=== PATIENT | male | born 1975 | race American Indian/Alaskan Native ===

== ENCOUNTER 2020-07-18 09:52 | Emergency (ER) | payer SELFPAY ==
[2020-07-18 10:06] VITALS: BP 141/88
--- NOTE | 2020-07-18 10:29 | Emergency Department Report ---
ED GI Bleed HPI - General Chief complaint: GI Bleed Stated complaint: BLOOD IN STOOL Time Seen by Provider: 07/18/20 10:13 Source: patient Mode of arrival: Ambulatory Limitations: No Limitations - History of Present Illness Initial comments: 45 yr old male with pmhx hypertension presents to ED with complaints of rectal bleeding. Patient states that he has been having rectal bleeding for 2 years. Patient states that he has been to few ERs for his symptoms he has had lab testing, as well as CT scans to evaluate his rectal bleeding but nothing signifi cant has been found. Patient brought in records from when he went to [place] [facility] from back in September 2019, hemoglobin then was stable at 14.6, he CT scan at the time which was done with IV contrast showed nothing acute. Patient states that he was told he had hemorrhoids and was prescribed Proctofoam, but he states that he does not feel his symptoms related to hemorrhoids because he still continues to have the symptoms. He states that the bleeding is typically bright red, with bowel movements, it has been intermittent over the past 2 years and notices it mainly on the tissue when he wipes and in the toilet bowl. He states that her stool is not hard, but he does admit that sometimes he strains for bowel movement. He reports mild discomfort in his lower abdomen intermittently. He also states that he is concerned because over the past 5 to 6 months has been losing weight and gaining weight. He reports no mucus in the stool. He denies any rectal pain or swelling. He denies any nausea or vomiting. He is not on any blood thinners,and denies any NSAID abuse or EtOH abuse. Patient states that he has not follow-up with a GI specialist because he did does not have insurance. complaint: blood on toilet paper, gross hematochezia -: year(s) (2 ) - Related Data Allergies Allergy/AdvReac Type Severity Reaction Status Date / Time No Known Allergies Allergy Unverified 07/18/20 10:01 ED Review of Systems ROS: Stated complaint: BLOOD IN STOOL Other details as noted in HPI Comment: All other systems reviewed and negative Constitutional: denies: chills, fever Eyes: denies: eye pain, eye discharge, vision change ENT: denies: ear pain, throat pain Respiratory: denies: cough, shortness of breath, wheezing Gastrointestinal: abdominal pain, hematochezia. denies: nausea, vomiting, diarrhea, constipation, hematemesis, melena Genitourinary: denies: urgency, dysuria Musculoskeletal: denies: back pain, joint swelling, arthralgia Skin: denies: rash, lesions Neurological: denies: headache, weakness, paresthesias Psychiatric: denies: anxiety, depression Hematological/Lymphatic: denies: easy bleeding, easy bruising ED Past Medical Hx - Past Medical History Hx Hypertension: Yes - Social History Smoking Status: Never Smoker Substance Use Type: Marijuana ED Physical Exam - General Limitations: No Limitations General appearance: alert, in no apparent distress - Head Head exam: Present: atraumatic, normocephalic, normal inspection - Eye Eye exam: Present: normal appearance, PERRL, EOMI Pupils: Present: normal accommodation - ENT ENT exam: Present: normal exam, mucous membranes moist - Respiratory Respiratory exam: Absent: respiratory distress - Cardiovascular Cardiovascular Exam: Present: regular rate, normal rhythm, normal heart sounds - GI/Abdominal GI/Abdominal exam: Present: soft. Absent: distended, tenderness, guarding, rebound, rigid - Rectal Rectal exam: Present: normal rectal tone, heme (-) stool, tenderness (Mild ), other (Small fissures noted about 6 oclock of rectum). Absent: black stool, bloody stool, fecal impaction, hemorrhoids, mass - Neurological Exam Neurological exam: Present: alert, oriented X3, CN II-XII intact, normal gait - Psychiatric Psychiatric exam: Present: normal affect, normal mood - Skin Skin exam: Present: intact ED Course Vital Signs 07/18/20 10:02 Temperature 97.8 F Pulse Rate 92 H Respiratory 18 Rate Blood Pressure 141/88 O2 Sat by Pulse 100 Oximetry ED Medical Decision Making - Lab Data Result diagrams: 07/18/20 10:43 07/18/20 10:43 - Medical Decision Making Patient has been rectal bleeding off and on for the past 2 years. Has been to a few ERs and has had lab work including negative CT scans. He has not been able to follow-up with the GI specialist due to to lack of insurance. He presents to the ER today with similar symptoms that he has been having a lot of for the past 2 years as well as fluctuation in his weight over the past 5 to 6 months. Patient has no significant past medical history. Patient is well-appearing, not toxic, is not in any acute distress. He is ne urologically intact with a normal gait. He has a soft nontender abdomen. Digital rectal exam shows small anal fissure, but no thrombosed hemorrhoid, rectal abscess, or gross blood. His Hemoccult was negative. His CBC shows a normal H&H. CMP is also normal. No indication for any further work-up including imaging or emergent consult or admission at this time. Informed patient of results. Informed that bleeding could also be coming from the anal fissures that I saw on exam but he needs to follow-up with a GI specialist for further evaluation as he needs a colonoscopy to further evaluate his bleeding. Patient expressed understanding of instructions and agree with plan. Patient stable at time of discharge. Critical care attestation.: If time is entered above; I have spent that time in minutes in the direct care of this critically ill patient, excluding procedure time. ED Disposition Clinical Impression: Rectal bleeding, Anal fissure Disposition: TO HOME OR SELFCARE Is pt being admited?: No Does the pt Need Aspirin: No Condition: Stable Instructions: Anal Fissure, Adult, [id number], Lower Gastrointestinal Bleeding Additional Instructions: It is important that you try not to strain with your bowel movements. If your stool is hard, that it could indicate that you are constipated and I recommend that you drink lots of fluids especially water, increase your fiber intake, you can also take Colace from [id number] which is a stool softener to help. Most importantly it is important that you follow-up with a GI specialist so that you can get a colonoscopy/endoscopy for further evaluation. Return to the ER if symptoms changes or worsens in any way. Referrals: ESTRELLA SIMMONS MD [Staff Physician] - 3-5 Days [facility] [Provider Group] - 3-5 Days Forms: Accompanied Note Time of Disposition: 11:44
[2020-07-18 11:12] LABS: Basophils % (Auto) 0.4 % (0.0-1.8); Eosinophils % (Auto) 0.7 % (0.0-4.3); Hematocrit 41.9 % (35.5-45.6); Lymphocytes # (Auto) 1.6 K/mm3 (1.2-5.4); Lymphocytes % (Auto) 23.2 % (13.4-35.0); Mean Corpuscular HGB Conc 33 % (32-34); Mean Corpuscular Volume 90 fl (84-94); Monocytes # (Auto) 0.6 K/mm3 (0.0-0.8); Monocytes % (Auto) 8.9 % (0.0-7.3); Platelet Count 214 K/mm3 (140-440); Red Blood Count 4.67 M/mm3 (3.65-5.03); Red Cell Distribution Width 14.3 % (13.2-15.2)
[2020-07-18 11:40] LABS: Alanine Aminotransferase 12 units/L (7-56); Albumin 4.6 g/dL (3.9-5); BUN/Creatinine Ratio 13; Blood Urea Nitrogen 14 mg/dL (9-20); Calcium 9.9 mg/dL (8.4-10.2); Hemolysis Index 2
== END 2020-07-18 12:16 | disposition home or self-care (01) ==
LOC: ED 09:52
DX: K62.5 Hemorrhage of anus and rectum (principal); K60.2 Anal fissure, unspecified; F12.90 Cannabis use, unspecified, uncomplicated; I10 Essential (primary) hypertension
CPT/HCPCS: 36415; 80053; 82271; 85025